=== PATIENT | female | born 1960 ===

== ENCOUNTER → 2021-10-30 | Day surgery (SDC) | payer OTHER ==
[~2021-10-30] VITALS: Ht 162.6 cm; Wt 113.4 kg
[~2021-10-30] MED LIST: BUSPIRONE HCL10 MG PO; CALCIUM WITH V1 EAC2 PO; CELEXA20 MG PO; CLARITIN10 MG PO; FIBER GUMMIES2 GM PO; FLONASE ALLER15.8 ML; MAG-OXIDE 400M400 MG PO; OMEPRAZOLE40 MG PO; SINGULAIR10 MG PO; VENTOLIN HFA IN18 GM INH; VITAMIN D3 PO; ZOCOR20 MG PO
[2021-10-30 08:52] LABS: HCT 42.1 % (37.0-47.0); HGB 13.8 g/dl (12.5-16.0); MCH 28.5 pg (25.0-31.0); MCHC 32.8 g/dL (32.0-36.0); MPV 10.4 fL (6.0-9.5); RBC 4.84 M/uL (4.20-5.40); RDW 13.2 % (11.5-14.0); WBC 9.5 K/uL (4.0-10.5)
[2021-10-30 09:27] LABS: ALBUMIN 3.7 g/dL (3.4-5.0); BILIRUBIN - TOTAL 0.6 mg/dL (0.2-1.0); BUN/CREAT RATIO (CALC) 12.3 RATIO; CREATININE 1.3 mg/dL (0.51-0.95); TOTAL PROTEIN 6.7 g/dL (6.4-8.2)
== END | disposition home or self-care (01) ==
LOC: FAS 08:09
PROVIDERS: Surgery
DX: Z12.11 Encounter for screening for malignant neoplasm of colon (principal); E78.5 Hyperlipidemia, unspecified; K21.9 Gastro-esophageal reflux disease without esophagitis; E11.9 Type 2 diabetes mellitus without complications; E66.01 Morbid (severe) obesity due to excess calories; Z86.010 Personal history of colon polyps; Z68.41 Body mass index [BMI] 40.0-44.9, adult; Z88.2 Allergy status to sulfonamides; Z79.899 Other long term (current) drug therapy
CPT/HCPCS: 36415; 80053; J1610; J2250; J2704; J7120